=== PATIENT | male | born 1995 | race Caucasian/White ===

== ENCOUNTER 2017-09-30 06:31 | Emergency (ER) | payer OTHER ==
[2017-09-30] MEDS: NS 1,000 ML IV (08:10)
[2017-09-30] MEDS: METOCLOPRAMIDE INJ 10MG/2ML VIAL (J2765) IV (08:10)
[2017-09-30] MEDS: BENZONATATE 100 MG CAP PO (08:11)
[2017-09-30] MEDS: KETOROLAC 30 MG/ML VIAL (J1885) IV (08:11)
[2017-09-30 08:20] LABS: HEMATOCRIT 40.5 % (42.0-52.0); HEMOGLOBIN 14.4 g/dl (13.5-17.5); MEAN CORPUSCULAR HEMOGLOBIN 31.4 pg (27.0-33.0); MEAN CORPUSCULAR HGB CONC 35.6 g/dl (32.0-36.5); MEAN CORPUSCULAR VOLUME 88.4 fl (80.0-96.0); PLATELET COUNT, AUTOMATED 176 10^3/uL (150-450); RED BLOOD COUNT 4.58 10^6/uL (4.30-6.10); RED CELL DISTRIBUTION WIDTH 11.6 % (11.5-14.5); WHITE BLOOD COUNT 3.3 10^3/uL (4.0-10.0)
[2017-09-30 08:26] LABS: ADD MANUAL DIFFER YES; DIFF SLIDE NUMBER 108; POSITIVE MORPH POS FLAG
[2017-09-30 08:37] LABS: ANION GAP 8 MEQ/L (8-16); BLOOD UREA NITROGEN 8 MG/DL (7-18); CALCIUM LEVEL 8.3 MG/DL (8.5-10.1); CARBON DIOXIDE LEVEL 29 MEQ/L (21-32); CHLORIDE LEVEL 101 MEQ/L (98-107); CREATININE FOR GFR 0.98 MG/DL (0.70-1.30); GLOMERULAR FILTRATION RATE > 60.0 (>60); GLUCOSE, FASTING 87 MG/DL (70-100); POTASSIUM SERUM 3.7 MEQ/L (3.5-5.1); SODIUM LEVEL 138 MEQ/L (136-145)
[2017-09-30 09:00] LABS: ATYPICAL LYMPH 6 % (0-5); BANDS 3 % (< 11); BASOPHILS 2 % (0-4); LYMPHOCYTES 14 % (16-52); MONOCYTES 1 % (0-8); NEUTROPHILS 74 % (35-75)
[2017-09-30 09:01] LABS: ANISOCYTOSIS 1+; PLATELET ESTIMATE NORMAL (NORMAL)
== END 2017-09-30 10:00 | disposition home or self-care (01) ==
LOC: M ED 06:31
DX: G44.209 Tension-type headache, unspecified, not intractable (principal)
CPT/HCPCS: J1885

== ENCOUNTER → 2018-07-26 | Outpatient (CLI) | payer OTHER ==
[~2018-07-26] MED LIST: GASTROGRAFIN SOLUTION 30ML (Q9963) As Ordered ONE; ISOVUE-370 76% 125ML VIAL (Q9967 PER ML) As Ordered ONE; KETO10TAB PO; REGL10TA6 PO
--- NOTE | 2018-07-26 18:05 | REP ---
CT of the abdomen and pelvis with IV and oral contrast for left lower quadrant abdominal pain: There are no comparison studies. The visualized lung bahena are unremarkable. The hepatic parenchyma, gallbladder, pancreas and spleen are normal size and unremarkable. The stomach is markedly distended with ingested material. The adrenals are unremarkable. The kidneys are unremarkable. The abdominal aorta is unremarkable. There is no periaortic adenopathy or mass. There is wall thickening of the descending colon and sigmoid colon. This is compatible with colitis in the appropriate clinical setting. There is no bowel distension or obstruction. Pelvis: The terminal ileum is unremarkable. The appendix cannot be identified, however there is no pericecal inflammation or abscess. The bladder is unremarkable. There is no adenopathy or ascites. Impression: Wall thickening of the descending colon and sigmoid colon compatible with colitis in the appropriate clinical setting. Marked gastric distension with ingested content. No bowel distension or obstruction. Electronically Signed by Niranjan Cohen MD 07/26/2018 05:57 P
== END ==
LOC: M RAD 13:11
PROVIDERS: ATTEND Clinical Nurse Specialist Psychiatric/Mental Health, Adult
DX: K51.90 Ulcerative colitis, unspecified, without complications (principal)
CPT/HCPCS: 74177; Q9963; Q9967